=== PATIENT | female | born 1985 | race Caucasian/White ===

== ENCOUNTER → 2017-07-02 | Outpatient (CLI) | payer BC ==
[~2017-07-02] VITALS: Ht 165.1 cm; Wt 66.0 kg
[~2017-07-02] MED LIST: PRENATAL TABLE1 EAC3 PO
[2017-07-02 07:58] VITALS: BP 112/57
== END | disposition home or self-care (01) ==
LOC: IVINF 07:51
DX: Z34.83 Encounter for supervision of other normal pregnancy, third trimester (principal); Z3A.28 28 weeks gestation of pregnancy; Z67.11 Type A blood, Rh negative
CPT/HCPCS: 96372; J2790

== ENCOUNTER 2017-09-26 17:00 | Inpatient (IN) | payer BC ==
[~2017-09-26] VITALS: Ht 165.1 cm; Wt 72.3 kg
[2017-09-26 17:27] VITALS: BP 113/62
[2017-09-26 18:08] LABS: BASOPHIL (%) 0.2 % (0-1); EOSINOPHIL (%) 0.3 % (0-5); HEMATOCRIT 34.3 % (36.0-46.0); HEMOGLOBIN 12.5 G/DL (11.9-15.5); IMMATURE GRANULOCYTE (%) 0.5 % (0.0-0.7); LYMPHOCYTE (%) 19.9 % (15-42); LYMPHOCYTE COUNT 1.8 K/uL (1.0-2.8); MCH 32.7 PG (29.0-34.0); MCHC 36.4 G/DL (30.0-36.0); MCV 89.8 FL (83-99); MONOCYTE (%) 8.1 % (3-12); MONOCYTE COUNT 0.8 K/uL (0-0.8); NEUTROPHIL COUNT 6.6 K/uL (1.8-6.4); PLATELET COUNT 223 K/uL (156-360); RBC DIS.WIDTH-CV 12.2 % (11.8-14.6); RED BLOOD COUNT 3.82 M/uL (3.80-5.20); WHITE BLOOD COUNT 9.3 K/uL (4.1-10.2)
[2017-09-26 18:38] LABS: PHENCYCLIDINE NEGATIVE (25 ng/mL); THC CANNABINOIDS NEGATIVE (50 ng/mL)
[2017-09-26 18:39] LABS: AMPHETAMINE NEGATIVE (500 ng/mL); BARBITURATES NEGATIVE (200 ng/mL); BENZODIAZEPINES NEGATIVE (150 ng/mL); BUPRENORPHINE NEGATIVE (10 ng/mL); COCAINE NEGATIVE (150 ng/mL); METHADONE NEGATIVE (200 ng/mL); METHAMPHETAMINE NEGATIVE (500 ng/mL); OPIATES (MORPHINE) NEGATIVE (100 ng/mL); OXYCODONE NEGATIVE (100 ng/mL); PROPOXYPHENE NEGATIVE (300 ng/mL); TRICYCLIC ANTIDEPRESSANTS NEGATIVE (300 ng/mL)
[2017-09-26 19:11] VITALS: BP 106/68
[2017-09-26 19:30] LABS: APPEARANCE CLEAR ((CLEAR)); BILIRUBIN NEGATIVE; BLOOD NEGATIVE; COLOR YELLOW ((YELLOW)); GLUCOSE (STRIP) NEGATIVE; KETONES NEGATIVE; LEUKOCYTES LARGE; NITRITE NEGATIVE; PROTEIN (STRIP) NEGATIVE; SPECIFIC GRAVITY 1.009 (1.000-1.030); UROBILINOGEN 0.2 MG/DL (0.2-1.0)
[2017-09-26 19:45] VITALS: BP 110/65
[2017-09-26 19:51] LABS: BACTERIA 1+ /HPF; EPITHELIAL CELLS 3+ /HPF; MUCUS NONE SEEN /LPF; RED BLOOD CELLS 0-5 /HPF (0-5); UCUL ADDED? YES
[2017-09-26 20:16] VITALS: BP 100/59
[2017-09-26 20:45] VITALS: BP 106/71
[2017-09-26 21:57] VITALS: BP 118/70
[2017-09-26] MEDS ORDERED: DOCUSATE SODIU100 MG PO (23:18)
[2017-09-26] MEDS ORDERED: IBUPROFEN800 MG PO (23:18)
[2017-09-26] MEDS ORDERED: ENDOCET 5-3251 EACH PO (23:18)
[2017-09-27] VITALS (8 sets, daily range): BP systolic 91–115; BP diastolic 53–74
[2017-09-27 06:02] LABS: BASOPHIL (%) 0.1 % (0-1); EOSINOPHIL (%) 0 % (0-5); HEMATOCRIT 33.8 % (36.0-46.0); HEMOGLOBIN 11.9 G/DL (11.9-15.5); IMMATURE GRANULOCYTE (%) 0.5 % (0.0-0.7); LYMPHOCYTE (%) 7.1 % (15-42); MCH 32.2 PG (29.0-34.0); MCHC 35.2 G/DL (30.0-36.0); MCV 91.6 FL (83-99); MONOCYTE (%) 4.7 % (3-12); MONOCYTE COUNT 0.6 K/uL (0-0.8); NEUTROPHIL (%) 87.6 % (45-76); PLATELET COUNT 212 K/uL (156-360); RBC DIS.WIDTH-CV 12.3 % (11.8-14.6); RBC DIS.WIDTH-SD 41.1 % (39-53); RED BLOOD COUNT 3.69 M/uL (3.80-5.20); WHITE BLOOD COUNT 13.7 K/uL (4.1-10.2)
[2017-09-28 03:30] VITALS: BP 91/53
[2017-09-28 07:38] VITALS: BP 91/62
[2017-09-28 15:52] VITALS: BP 103/62
[2017-09-28 19:02] VITALS: BP 102/58
[2017-09-28 23:00] VITALS: BP 108/61
[2017-09-29 03:00] VITALS: BP 103/53
[2017-09-29 06:56] VITALS: BP 117/67
[2017-09-29 15:02] VITALS: BP 114/64
== END 2017-09-29 20:04 | disposition home or self-care (01) | DRG 766 ==
LOC: LDRP-OP 17:00 → 2WEST 17:01 → LDRP-OP 10-22 06:07
PROVIDERS: Midwife; Obstetrics & Gynecology
DX: O41.03X0 Oligohydramnios, third trimester, not applicable or unspecified (principal); O48.0 Post-term pregnancy; O76 Abnormality in fetal heart rate and rhythm complicating labor and delivery; O99.824 Streptococcus B carrier state complicating childbirth; Z3A.40 40 weeks gestation of pregnancy; Z37.0 Single live birth
CPT/HCPCS: 81003; 83030; 85025; 86850; 86870; 86900; 86901; 86905; 87086; 88307; J0330; J0690; J2274; J2790; J3010; J7120; S0020